=== PATIENT | male | born 1960 | race African-American/Black ===

== ENCOUNTER 2022-09-25 12:00 | Emergency (ER) | payer MEDICAID ==
[~2022-09-25] VITALS: Ht 170.2 cm; Wt 89.0 kg
[2022-09-25 12:01] VITALS: BP 164/76
== END 2022-09-25 16:55 | disposition left against medical advice (07) ==
LOC: ER 12:09
DX: Z53.21 Procedure and treatment not carried out due to patient leaving prior to being seen by health care provider (principal)